=== PATIENT | female | born 1985 | race African-American/Black ===

== ENCOUNTER 2017-03-05 17:31 | Emergency (ER) | payer OTHER ==
[2017-03-05 17:38] VITALS: BP 146/71; BMI 21.9
--- NOTE | 2017-03-05 18:28 | DR.GENAD ---
HPI - PCP Primary Care Physician: NFD - HPI Comment HPI Comment: GETTING WORSE. INCREASE PAIN. AT WORK, GET ON THE KNEES TO DO HER DUTY AT WORK. NO OTHER TRAUMA. - Complaint/Symptoms Chief Complaint Doctors Comments: LEFT KNEE PAIN AND LEFT ANKLE SWELLING FOR 3 WEEKS. Chief Complaint:: PATIENT STATED THAT SHE IS HAVING PAIN AND SWELLING IN HER LEFT KNEE GOING ON FOR 3-4 WEEKS - Nurses notes reviewed Nurses Notes Review: Yes - Source History Provided: Patient - Mode of Arrival Mode of Arrival: Ambulatory - Timing Onset of Chief Complaint: 02/13/17 Came on: Gradually - Duration Duration: Constant Duration: Weeks - Severity Severity: Moderate PMH - PMH Past Medical History: Yes Past Medical History: Anxiety Past Surgical History: No - Family History History of Family Medical Conditions: Yes Family Medical History: Diabetes Mellitus - Social History Does patient currently use any type of tobacco product: Yes Have you used tobacco products in the last 12 months: Yes Type of Tobacco Use: Cigarettes Does any household member use tobacco: No Alcohol Use: None Do you use any recreational Drugs:: No Lives With: Family Lives Where: Home - infectious screening In the last 2 months have you had wt loss of >10#?: NO Have you had fever, night sweats or hemotysis?: No Have you traveled outside the country in the last 6 months?: No Isolation: Standard ROS - Review of Systems Constitutional: No Symptoms Reported Eyes: No Symptoms Reported ENTM: No Symptoms Reported Respiratoy: No Symptoms Reported Cardiovascular: No Symptoms Reported Gastrointestinal/Abdominal: No Symptoms Reported Genitourinary: No Symptoms Reported Neurological: No Symptoms Reported Musculoskeletal: Left, Knee, Ankle Integumentary: No Symptoms Reported Hematologic/Lymphatic: No Symptoms Reported Endocrine: No Symptoms Reported All Other Systems: Reviewed and Negative PE - Vital Signs Vitals: Temperature 98.8 F Pulse Rate 93 Respiratory Rate 20 Blood Pressure 146/71 O2 Sat by Pulse Oximetry 100 - General Limitations: No Limitations General Appearance: Alert - Head Head Exam: Normal Inspection - Eyes Eye exam: Normal Appearance - ENT ENT Exam: Normal External Ear Exam External Ear Exam: Normal External Inspection TM/Canal Exam: Bilateral Normal Nose Exam: Normal Nose Exam Mouth Exam: Normal Inspection Throat Exam: Normal Inspection - Neck Neck Exam: Trachea Midline. negative: Tenderness, Meningismus, Lymphadenopathy - Chest Chest Inspection: Symmetric Chest Wall Rise - Respiratory Respiratory Exam: Normal Lung Sounds Bilat Respiratory Exam: Bilateral Clear to Auscultation - Cardiovascular Cardiovascular Exam: Regular Rate, Normal Rhythm, Normal Heart Sounds - Abdominal Exam Abdominal Exam: Normal Bowel Sounds, Soft. negative: Tenderness - Extremities Extremities Exam: Tenderness (LT KNEE AND ANKLE TENDER.), Joint Swelling (LT ANKLE). negative: Full ROM (DECREASE) - Back Back Exam: Normal Inspection - Neurologic Neurological Exam: Alert, Oriented X3 - Skin Skin Exam: Normal Color MDM - Differential Diagnosis Differential Diagnosis: CONTUSION, SPRAIN, STRAIN, FRACTURE LT KNEE AND LT ANKLE. Course - Treatment Treatment: SEE ORDERS - Education/Counseling Education/Counseling: Patient, Education Educated On: Diagnosis, Needs for Follow Up ROR - XRAY XRAY Interpreted by: Radiologist XRAY Findings: REPORT DISCUSS WITH PATIENT. - Diagnosis Discharge Problem: Left knee sprain Qualifiers: Encounter type: initial encounter Involved ligament of knee: unspecified ligament Qualified Code(s): S83.92XA - Sprain of unspecified site of left knee, initial encounter Ankle pain, left Qualifiers: Chronicity: acute Qualified Code(s): M25.572 - Pain in left ankle and joints of left foot - Discharge Plan Disposition: 01 HOME, SELF-CARE Condition: Stable Prescriptions: Ibuprofen [MOTRIN TAB 600 MG *] 600 mg PO TID PRN #20 tab PRN Reason: Pain/Inflammation Tramadol HCl 50 mg PO Q8H PRN #15 tab PRN Reason: Pain - Follow ups/Referrals Follow ups/Referrals: NFD,None [Primary Care Provider] - 3 days - Instructions Instructions: Knee Pain, Ankle Pain Additional Instructions: RETURN TO ED IF WORSE.
[2017-03-05] MEDS ORDERED: TORADOL 60 MG VIAL IM ONE (20:02)
[2017-03-05] MEDS ORDERED: TORADOL TAB PO ONE ×2 (20:06→20:19)
--- NOTE | 2017-03-05 20:29 | RAD ---
HISTORY: 31-year-old female with left ankle swelling and pain for 3-4 weeks. No history of trauma. Study: Three views left ankle. Comparison: None. Findings: Talar dome is intact. No acute cortical disruption or dislocation can be identified. The ankle mort ise remains well aligned. No significant soft tissue swelling or injury can be seen. The visualize d portions of the talus and calcaneus are unremarkable. IMPRESSION: 1. Negative exam. Reported By:
--- NOTE | 2017-03-05 20:31 | RAD ---
KNEE RADIOGRAPHS CLINICAL HISTORY: 31-year-old female pain and swelling of left knee for 3-4 weeks. No history trauma . COMPARISON: None. FINDINGS: Frontal and lateral views of the left knee demonstrate a small suprapatellar joint effusio n with a 7 mm ovoid bone fragment adjacent to the medial femoral condyle with surrounding soft tissu e edema. Medial and lateral joint spaces are preserved. No other osseous abnormality, aggressive bon e lesion or abnormal periosteal reaction. IMPRESSION: 7 mm bone fragment adjacent to the medial femoral condyle with surrounding soft tissue edema and sma ll suprapatellar joint effusion that may indicate avulsion of the medial collateral ligament. Recomm end MR knee. Reported By:
== END 2017-03-05 20:31 | disposition home or self-care (01) ==
LOC: ER 17:42
DX: S83.92XA Sprain of unspecified site of left knee, initial encounter (principal); M25.572 Pain in left ankle and joints of left foot; Y33.XXXA Other specified events, undetermined intent, initial encounter; Y92.69 Other specified industrial and construction area as the place of occurrence of the external cause
CPT/HCPCS: 73560; 73610; 99283

== ENCOUNTER → 2017-03-16 | Outpatient (CLI) | payer OTHER ==
[2017-03-05 17:38] VITALS: BP 146/71
[2017-03-16 13:39] LABS: BASOPHILS % (AUTO) 0.9 % (0.2-1.0); EOSINOPHILS # (AUTO) 0.1 x10^3/uL (0.0-0.2); EOSINOPHILS % (AUTO) 3.4 % (0.9-2.9); HEMOGLOBIN 12.8 g/dL (12.0-16.0); LYMPHOCYTES # (AUTO) 1.4 X10^3/uL (1.3-2.9); LYMPHOCYTES % (AUTO) 40.4 % (21.0-51.0); MEAN CORPUSCULAR HEMOGLOBIN 25.2 pg (27.0-34.0); MEAN CORPUSCULAR HGB CONC 33.7 g/dL (33.0-35.0); MEAN CORPUSCULAR VOLUME 74.7 fL (80.0-100.0); MEAN PLATELET VOLUME 7.9 fL (7.4-11.0); MONOCYTES # (AUTO) 0.2 x10^3/uL (0.3-0.8); MONOCYTES % (AUTO) 5.2 % (0.0-13.0); NEUTROPHILS # (AUTO) 1.7 x10^3/uL (2.2-4.8); NEUTROPHILS % (AUTO) 50.1 % (42.0-75.0); PLATELET COUNT 272 X10^3/uL (150.0-450.0); RED BLOOD COUNT 5.09 X10^6/uL (3.5-5.4); RED CELL DISTRIBUTION WIDTH 14.3 % (11.6-16.5); WHITE BLOOD COUNT 3.3 X10^3/uL (3.6-10.0)
[2017-03-16 13:50] LABS: ALANINE AMINOTRANSFERASE 72 Units/L (12-78); ALBUMIN 3.5 g/dL (3.4-5.0); ALKALINE PHOSPHATASE 66 Units/L (46-116); ASPARTATE AMINO TRANSFERASE 45 Units/L (15-37); BLOOD UREA NITROGEN 15 mg/dL (7-18); CALCIUM 8.8 mg/dL (8.5-10.1); CHLORIDE 107 mmol/L (98-107); CREATININE 1.07 mg/dL (0.55-1.02); GLUCOSE 110 mg/dL (65-99); SODIUM 141 mmol/L (136-145); TOTAL PROTEIN 7.3 g/dL (6.4-8.2); URIC ACID 2.5 mg/dL (2.6-6.0); eGFR BLACK RACES > 60 (>60); eGFR NON BLACK RACES > 60 (>60)
[2017-03-16 13:57] LABS: HYPOCHROMASIA 1+; MICROCYTOSIS 1+; PLATELET MORPHOLOGY COMMENT NORMAL (NORMAL)
[2017-03-16 14:39] LABS: ERYTHROCYTE SEDIMENTATION RATE 4 MM/HOUR (0-20)
== END ==
LOC: LAB 13:15
PROVIDERS: ATTEND Nurse Practitioner Family
DX: M25.472 Effusion, left ankle (principal); M25.462 Effusion, left knee
CPT/HCPCS: 36415; 80053; 84550; 85025; 85652; 86140

== ENCOUNTER → 2017-03-25 | Outpatient (CLI) | payer OTHER ==
[2017-03-05 17:38] VITALS: BP 146/71
--- NOTE | 2017-03-25 16:26 | RAD ---
HISTORY: Acute right knee pain at work Study: Four views right knee Comparison: None Findings: No evidence for acute cortical disruption or dislocation. The medial and lateral tibiofemoral diane rtments appear unremarkable without loss of significant joint space. The lateral radiograph fails t o demonstrate significant joint effusion. Patellofemoral compartment is normal in its appearance. IMPRESSION: 1. Negative exam. Reported By:
== END ==
LOC: RAD 15:56
PROVIDERS: ATTEND Nurse Practitioner Family
DX: M25.561 Pain in right knee (principal); M25.562 Pain in left knee
CPT/HCPCS: 73564